=== PATIENT | female | born 1980 | race Caucasian/White ===

== ENCOUNTER 2016-11-22 19:44 | Emergency (ER) | payer MEDICAID, OTHER ==
[~2016-11-22] VITALS: Ht 167.6 cm; Wt 112.0 kg
[~2016-11-22 19:44] MED LIST: AMOX500T PO; PRED50TA PO
[2016-11-22 19:50] VITALS: BP 141/106; PULSE 94; RESP 20; TEMP 98.4; O2SAT 98
[2016-11-22] MEDS ORDERED: PENI500T PO (21:11)
[2016-11-22] MEDS ORDERED: NAPR500T PO (21:11)
[2016-11-22] MEDS ORDERED: TRAM50TA PO (21:11)
--- NOTE | 2016-11-22 21:11 | PD ---
HPI Chief Complaint: Headache Time Seen by Provider: 20:58 Travel History International Travel<30 days: No Contact w/Intl Traveler<30days: No Traveled to known affect area: No History of Present Illness HPI This is a 36-year-old female who presents to the emergency department with pain that started in her left jaw and then has migrated to her right jaw the past day , severe, constant, shooting, waxing and waning radiating to her right ear. She does say she feels pain by her right upper wisdom tooth and in the past she' s been told she needs to get her wisdom tooth taken out. She denies any fevers or chills. PFSH Past Medical History Cancer: No Cardiovascular Problems: No Diabetes: No Diminished Hearing: No Endocrine: No Gastrointestinal Disorders: No Genitourinary: No Hepatitis: No Hiatal Hernia: No Hypertension: No Immune Disorder: No Kidney Stones: Yes (2012) Musculoskeletal: No Neurologic: No Psychiatric: No Respiratory: Yes (OCCAS. BRONCHITIS) Thyroid Disease: No Tetanus Vaccination: Unknown Influenza Vaccination: No ?: Not LMP: NOW : 3 Para: 3 Tubal Ligation: Yes (may 2012) Past Surgical History Surgical History: No Previous Surgery AICD: No Gynecologic Surgery: Yes (TUBAL LIGATION) Joint Replacement: No Pacemaker: No Other Surgery: Yes (KIDNEY STONES) Social History Alcohol Use: Yes (social drinker, wine today) Tobacco Use: No Substance Use: No Allergies-Medications (Allergen,Severity, Reaction): Coded Allergies: No Known Allergies (Verified , 07/16/13) Reported Meds & Prescriptions Reported Meds & Active Scripts Active Review of Systems Except as stated in HPI: all other systems reviewed are Neg Physical Exam Narrative GENERAL:Well appearing, no acute distress SKIN: Focused skin assessment warm and dry. HEAD: Atraumatic. Normocephalic. EYES: Pupils equal and round. No injection or drainage. ENT: Moist mucous membranes. Tender to palpation along the right posterior mandibular gumline. Clear tympanic membrane on the right. NECK: Trachea midline. CARDIOVASCULAR: Regular rate and rhythm. No murmur appreciated. RESPIRATORY: Clear to auscultation. Breath sounds equal bilaterally. GASTROINTESTINAL: Abdomen soft, non-tender, nondistended. MUSCULOSKELETAL: No obvious deformities. NEUROLOGICAL: Awake and alert. No obvious cranial nerve deficits. Moving all extremities. PSYCHIATRIC: Appropriate mood and affect; insight and judgment normal. Data Data Last Documented VS Vital Signs Date Time Temp Pulse Resp B/P (MAP) Pulse Ox O2 Delivery O2 Flow Rate FiO2 11/22/16 19:50 98.4 94 20 141/106 (118) 98 Orders Orders Ketorolac Inj (Toradol Inj) (11/22/16 21:15) [facility] Medical Decision Making Medical Screen Exam Complete: Yes Emergency Medical Condition: Yes Interpretation(s) Afebrile, mild tachycardia, hypertensive Differential Diagnosis Dental abscess, dental pain, Ludwigs angina, sinusitis, trigeminal neuralgia Narrative Course This is a 36-year-old female who presents to the emergency department with pain along her right upper jaw extending into the ear. She has a fairly benign exam. She is nontoxic appearing. I suspect she has a dental infection. We will do a trial of antibiotic therapy and pain control and she'll follow up with a dentist. I did discuss the possibility of this being trigeminal neuralgia. I think it's a little less likely because she is tender on dental exam. I advised her to follow-up with the [facility] and consider following up with a neurologist of her symptoms don't improve. Diagnosis Primary Impression: Pain, dental Patient Instructions: General Instructions Additional Instructions: If you develop increasing swelling, severe pain, fever or difficulty swallowing or breathing return to the emergency department. Follow-up with a dentist as soon as possible. Med/Other Pt SpecificInfo: Prescription(s) given Scripts Tramadol (Tramadol) 50 Mg Tab 50 MG PO Q6H Y for PAIN, #15 TAB 0 Refills Prov: Lena Penn MD 11/22/16 Naproxen (Naproxen) 500 Mg Tab 500 MG PO BID Y for PAIN SCALE 4 TO 10, #20 TAB 0 Refills Prov: Lena Penn MD 11/22/16 Penicillin V Potassium (Penicillin V Potassium) 500 Mg Tab 500 MG PO Q8H for Infection for 7 Days, #21 TAB 0 Refills Prov: Lena Penn MD 11/22/16 Disposition: 01 DISCHARGE HOME Condition: Stable Lena Penn MD Nov 22, 2016 21:11
[2016-11-22] MEDS ORDERED: KETOROLAC TROMETHAMINE 60 MG/2 ML (IM) VIAL IM ONE (21:15)
== END 2016-11-22 21:28 | disposition home or self-care (01) ==
LOC: PHED 19:44 → PHEFT 21:28
DX: K08.89 Other specified disorders of teeth and supporting structures (principal)
CPT/HCPCS: 96372; 99284; J1885